=== PATIENT | female | born 1940 | race Caucasian/White ===

== ENCOUNTER → 2016-07-01 | Outpatient (CLI) | payer OTHER ==
--- NOTE | 2016-07-01 20:43 | DX ---
DEXA Bone Mineral Densitometry Clinical Indications: Postmenopausal, post hysterectomy and oophorectomy, back pain, screening for o steoporosis Comparison: May 16, 2014 (low bone density in the forearm) Technique: Bone Mineral Densitometry (BMD) by Dual Energy X-Ray Absorptiometry (DEXA) was performed utilizing the [employer] scanner. The lumbar spine was evaluated in the AP projection. The bilat eral hips and forearm were evaluated in the AP projection. Vertebral fracture assessment was also pe rformed. AP Lumbar Spine: The L1, L2, L3 and L4 vertebral bodies were evaluated. BMD: 1.130 gm/cm2 T-score: -0.5 SD Z-score: 1.7 SD No significant change. AP Left Hip: Neck BMD: 0.999 gm/cm2 T-score: -0.3 SD Z-score: 2.0 SD No significant change in total BMD AP Right Hip: Total BMD: 1.051 gm/cm2 T-score: 0.3 SD Z-score: 2.5 SD No significant change. AP Left Forearm, 06/15: BMD: 0.658 gm/cm2 T-score: -2.5 SD Z-score: -0.1 SD No significant change. Vertebral Fracture Assessment: No significant fracture deformity. Degenerative spurring in the lumba r spine and atherosclerotic calcification of the abdominal aorta likely increase lumbar BMD. 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 Since the forearm is the lowest measured site, it would be worthwhile to exclude hyperparathyroidism. The ten year FRAX risk for any major osteoporotic fracture , which excludes the risk for a wrist frac ture, is 12.9% and for a hip fracture is 1.4%. To prevent osteoporosis and to promote the patient's bone density, the following recommendations shou ld be considered: 1. Pursue a regular regimen of weightbearing and muscle strengthening exercises in order to reduce t he risk of falls and fractures (as tolerated by the patient's general medical condition). 2. Ensure that daily dietary calcium uptake is maximized. 3. Consider checking the serum vitamin D level. Ensure that intake of vitamin D is 600 IU per day (fo r all ages through 70) . 4. Consider follow-up DEXA scan in 3-4 years to assess the rate of bone loss in this patient.
== END ==
LOC: FIMAGING 11:08
PROVIDERS: ATTEND Family Medicine
DX: M81.0 Age-related osteoporosis without current pathological fracture (principal)

== ENCOUNTER → 2017-04-13 | Outpatient (CLI) | payer OTHER ==
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
== END ==
LOC: CIMAGING 10:43
PROVIDERS: ATTEND Obstetrics & Gynecology
DX: Z12.31 Encounter for screening mammogram for malignant neoplasm of breast (principal)
CPT/HCPCS: G0202; G8978-GP-CK; G8979-GP-CJ

== ENCOUNTER → 2017-07-16 | Outpatient (CLI) | payer OTHER | LOC: FIMAGING 09:11 | PROVIDERS: ATTEND Podiatrist Primary Podiatric Medicine | DX: R22.42 Localized swelling, mass and lump, left lower limb (principal) ==

== ENCOUNTER → 2018-04-18 | Outpatient (CLI) | payer OTHER | LOC: CIMAGING 10:43 | PROVIDERS: ATTEND Obstetrics & Gynecology | DX: Z12.31 Encounter for screening mammogram for malignant neoplasm of breast (principal) ==

== ENCOUNTER → 2018-11-08 | Outpatient (CLI) | payer OTHER | LOC: EMCIMAGING 10:49 ==